=== PATIENT | female | born 1980 | race Caucasian/White ===

== ENCOUNTER 2016-10-31 19:18 | Emergency (ER) | payer OTHER ==
[~2016-10-31] VITALS: Ht 165.1 cm; Wt 72.7 kg
[~2016-10-31 19:18] MED LIST: ACETAMINOPHEN325 M1 PO; ALBUTEROL2.5 MG/3 M IH; ALPRAZOLAM0.25 M2 PO; ALPRAZOLAM1 MG PO; AMBIEN5 MG PO; AMOXICILLIN500 M1 PO; ASCORBIC ACID500 M3 PO; BACLOFEN10 MG PO; BACLOFEN20 MG PO; BISAC-EVAC10 MG PR; BUSPAR30 MG PO; CEPACOL SORE T1 EAC9 MM; COLACE100 MG PO; COMBIVENT RESPIM4 GM IH; DECADRON2 MG PO; DILAUDID1 MG/ML IM; ELAVIL10 MG PO; ENDOCET 10-3251 EACH PO; ENDOCET 5-3251 EACH PO; ESCITALOPRAM OX10 MG PO; FLEXERIL10 MG PO; FOLIC ACID0.4 MG PO; FOLIC ACID1 MG PO; FUROSEMIDE20 MG PO; HYCODAN SYRUP480 ML PO; HYDROXYZINE PAM50 MG PO; LIDOCAINE700 MG TD; LYRICA50 MG PO; MACROBID100 MG PO; MAG-AL PLUS SUS30 ML PO; METHADONE 22 MG/1 ML PO; MILK OF MAGNESI10 ML PO; MOTRIN400 MG PO; NEURONTIN300 MG PO; NICODERM CQ1 EAC1 TD; NICOTINE PATCH1 EAC1 TD; OCUFLOX 0.100 DROP/5 LEFT EYE; OXYCODONE HCL15 MG PO; PAXIL40 MG PO; PERCOCET 5/31 TABLET PO; POLYETHYLENE GL17 GM PO; PREDNISONE10 MG PO; PREDNISONE50 MG PO; PULMICORT FLE180 MCG IH; ROBITUSSIN AC,T10 ML PO; ROBITUSSIN100 MG/5 M PO; SENNA-DOCUSATE1 EAC1 PO; SEROQUEL50 MG PO; SINGULAIR10 MG PO; TESSALON PERLE100 MG PO; THEO-24400 MG PO; THERAGRAN1 TABLET PO; TIZANIDINE HCL4 MG PO; TOPIRAMATE100 MG PO; TRAZODONE HCL50 MG PO; ULTRAM50 MG PO; VENTOLIN HFA18 GM IH; VICODIN 5-3001 EACH PO; ZITHROMAX Z-PA250 MG PO; ZOFRAN4 MG PO
[2016-10-31 19:49] LABS: HEMATOCRIT 41.8 % (36.0-46.0); MCH 28.9 PG (29.0-34.0); MCHC 34.2 G/DL (30.0-36.0); MCV 84.4 FL (83-99); RBC DIS.WIDTH-CV 13.8 % (11.8-14.6); RBC DIS.WIDTH-SD 42.8 % (39-53); RED BLOOD COUNT 4.95 M/uL (3.80-5.20); WHITE BLOOD COUNT 11.2 K/uL (4.1-10.2)
[2016-10-31 19:58] LABS: CHLORIDE 110 mEq/L (99-109); POTASSIUM 3.6 mEq/L (3.7-5.4); SODIUM 141 mEq/L (136-147)
[2016-10-31 20:01] LABS: GLUCOSE 98 mg/dL (70-99)
[2016-10-31 20:02] LABS: ANION GAP 11 MEQ/L (2-14); TOTAL BILIRUBIN 0.3 mg/dL (0.0-1.0)
[2016-10-31 20:04] LABS: ALKALINE PHOSPHATASE 133 IU/L (3-129); GFR ESTIMATE (CALCULATED) > 59 mL/min/
[2016-10-31 20:05] LABS: UREA NITROGEN (BUN) 5 mg/dL (9-23)
[2016-10-31 20:08] LABS: LIPASE 1035 U/L (1.0-51.0)
[2016-10-31 20:13] LABS: QUANTITATIVE HCG < 4.0 MIU/ML
[2016-10-31 20:26] LABS: MEAN PLAT.VOLUME 12.1 uM^3 (9.5-12.4); PLAT.SUFFICIENCY ADEQUATE; PLATELET COUNT 233 K/uL (156-360)
[2016-10-31 23:38] LABS: ADD MIUA? YES; BILIRUBIN NEGATIVE; BLOOD NEGATIVE; COLOR YELLOW ((YELLOW)); GLUCOSE (STRIP) NEGATIVE; KETONES NEGATIVE; LEUKOCYTES NEGATIVE; NITRITE NEGATIVE; PROTEIN (STRIP) NEGATIVE; SPECIFIC GRAVITY 1.012 (1.000-1.030); UROBILINOGEN 0.2 MG/DL (0.2-1.0)
[2016-11-01 00:01] LABS: BACTERIA RARE /HPF; CASTS NONE SEEN /LPF; CRYSTALS NONE SEEN; EPITHELIAL CELLS 1+ /HPF; MUCUS 1+ /LPF; RED BLOOD CELLS NONE SEEN /HPF (0-5); UCUL ADDED? NO; WHITE BLOOD CELLS 0-5 /HPF (0-5)
[2016-11-01] MEDS ORDERED: PERCOCET 5/31 TABLET PO (03:19)
[2016-11-01] MEDS ORDERED: ZOFRAN8 MG PO (03:19)
[2016-11-01 03:46] VITALS: BP 127/98
== END 2016-11-01 03:48 | disposition left against medical advice (07) ==
LOC: EME 19:18 → EXP 19:18
DX: S16.1XXA Strain of muscle, fascia and tendon at neck level, initial encounter (principal); S00.93XA Contusion of unspecified part of head, initial encounter; W01.198A Fall on same level from slipping, tripping and stumbling with subsequent striking against other object, initial encounter; K85.90 Acute pancreatitis without necrosis or infection, unspecified; Z53.20 Procedure and treatment not carried out because of patient's decision for unspecified reasons; Z91.14 Patient's other noncompliance with medication regimen; Z86.73 Personal history of transient ischemic attack (TIA), and cerebral infarction without residual deficits; J45.909 Unspecified asthma, uncomplicated; I10 Essential (primary) hypertension; Z98.1 Arthrodesis status; F17.200 Nicotine dependence, unspecified, uncomplicated
CPT/HCPCS: 72040; 72125; 74177; 76705; 80053; 81003; 83690; 84702; 85027; 99281; 99285; J2270; J2405; J7030

== ENCOUNTER 2016-11-08 19:33 | Inpatient (IN) | payer OTHER ==
[~2016-11-08] VITALS: Ht 165.1 cm; Wt 83.4 kg
[~2016-11-08 19:33] MED LIST changes: -NEURONTIN300 MG PO; +NEURONTIN400 MG PO; -THEO-24400 MG PO; +THEOPHYLLINE400 MG PO; +ZOFRAN8 MG PO
[2016-11-08 20:28] LABS: CARBON DIOXIDE (BICARBONATE) 24.7 MEQ/L (20-31)
[2016-11-08 20:38] LABS: CHLORIDE 111 mEq/L (99-109); HEMATOCRIT 40.1 % (36.0-46.0); MCH 29.2 PG (29.0-34.0); MCHC 32.9 G/DL (30.0-36.0); POTASSIUM 4.6 mEq/L (3.7-5.4); RBC DIS.WIDTH-CV 14.1 % (11.8-14.6); RBC DIS.WIDTH-SD 45.4 % (39-53); RED BLOOD COUNT 4.52 M/uL (3.80-5.20); SODIUM 142 mEq/L (136-147); WHITE BLOOD COUNT 28.3 K/uL (4.1-10.2)
[2016-11-08 20:40] LABS: GLUCOSE 224 mg/dL (70-99)
[2016-11-08 20:41] LABS: MCV 88.7 FL (83-99)
[2016-11-08 20:42] LABS: ANION GAP 14 MEQ/L (2-14)
[2016-11-08 20:44] LABS: GFR ESTIMATE (CALCULATED) 49 mL/min/
[2016-11-08 20:45] LABS: UREA NITROGEN (BUN) 16 mg/dL (9-23)
[2016-11-08 20:51] LABS: TROP-I INTERPRETATION NEGATIVE
[2016-11-08 21:09] LABS: BICARBONATE 22.5 mEq/L (22-26); CARBOXY HGB 3.6 % (0-5); METHEMOGLOBIN 0.9 % (0-1.5); PO2 108 mm Hg (80-100)
[2016-11-08 21:10] LABS: PCO2 63 mm Hg (35-45); pH 7.16 (7.35-7.45)
[2016-11-08 21:11] LABS: COMMENTS - BLOOD GASES A+C+; DEVICE NC; O2 FLOW 3 L/MIN; SITE RR; TOTAL RESP RATE 20 resp/min
[2016-11-08 21:21] LABS: PLAT.SUFFICIENCY ADEQUATE; PLATELET COUNT 210 K/uL (156-360)
[2016-11-08] MEDS ORDERED: ZOFRAN4 MG PO (22:05)
[2016-11-08] MEDS ORDERED: AMBIEN10 MG PO (22:06)
[2016-11-08] MEDS ORDERED: BUTALB-APAP-CA1 EACH PO (22:07)
[2016-11-08 22:50] LABS: BICARBONATE 21.8 mEq/L (22-26); COMMENTS - BLOOD GASES C+A+; DEVICE HFNC; FI02 25 %; METHEMOGLOBIN 1.1 % (0-1.5); O2 FLOW 50 L/MIN; PCO2 52 mm Hg (35-45); PO2 68 mm Hg (80-100); SITE RR; pH 7.23 (7.35-7.45)
[2016-11-09] VITALS (8 sets, daily range): BP systolic 108–161; BP diastolic 59–92
[2016-11-09 06:38] LABS: EOSINOPHIL (%) 0 % (0-5); HEMATOCRIT 33.2 % (36.0-46.0); IMMATURE GRANULOCYTE (%) 0.6 % (0.0-0.7); IMMATURE GRANULOCYTE COUNT 0.1 K/uL; INSTRUMENT ABS NEUTROPHIL CT 12.8 K/uL; LYMPHOCYTE COUNT 1.1 K/uL (1.0-2.8); MCH 28.9 PG (29.0-34.0); MCHC 32.8 G/DL (30.0-36.0); MCV 88.1 FL (83-99); MEAN PLAT.VOLUME 12.6 uM^3 (9.5-12.4); MONOCYTE (%) 0.4 % (3-12); MONOCYTE COUNT 0.1 K/uL (0-0.8); NEUTROPHIL (%) 90.9 % (45-76); NEUTROPHIL COUNT 12.8 K/uL (1.8-6.4); PLATELET COUNT 162 K/uL (156-360); RBC DIS.WIDTH-CV 14.1 % (11.8-14.6); RBC DIS.WIDTH-SD 45.7 % (39-53); RED BLOOD COUNT 3.77 M/uL (3.80-5.20)
[2016-11-09 06:50] LABS: ANION GAP 10 MEQ/L (2-14); CHLORIDE 109 MEQ/L (99-109); GFR ESTIMATE (CALCULATED) > 59 mL/min/; GLUCOSE 161 mg/dL (70-99); POTASSIUM 3.8 MEQ/L (3.7-5.4); SAMPLE HEMOLYSIS CHECK 0; SAMPLE ICTERIC CHECK 0; SAMPLE LIPEMIA CHECK 0; SODIUM 139 MEQ/L (136-147); UREA NITROGEN (BUN) 13 mg/dL (9-23)
[2016-11-09 14:21] LABS: AMPHETAMINES QUANT VALUE 0 NG/ML; BARBITUATES QUANT VALUE 0 NG/ML; BENZODIAZEPINES, URINE SCREEN POSITIVE (200 ng/mL); MARIJUANA QUANT VALUE 0 NG/ML; OPIATES QUANTITATIVE VALUE 0 NG/ML; PHENCYCLIDINE QUANT VALUE 0 NG/ML
[2016-11-10 03:43] VITALS: BP 138/93
[2016-11-10 05:12] LABS: EOSINOPHIL (%) 0.1 % (0-5); HEMATOCRIT 32.3 % (36.0-46.0); IMMATURE GRANULOCYTE (%) 0.5 % (0.0-0.7); IMMATURE GRANULOCYTE COUNT 0.1 K/uL; INSTRUMENT ABS NEUTROPHIL CT 8.5 K/uL; MCH 28.7 PG (29.0-34.0); MCHC 33.4 G/DL (30.0-36.0); MCV 85.9 FL (83-99); MONOCYTE (%) 5.3 % (3-12); MONOCYTE COUNT 0.8 K/uL (0-0.8); NEUTROPHIL COUNT 8.5 K/uL (1.8-6.4); PLATELET COUNT 163 K/uL (156-360); RBC DIS.WIDTH-CV 14.1 % (11.8-14.6); RBC DIS.WIDTH-SD 44.8 % (39-53); RED BLOOD COUNT 3.76 M/uL (3.80-5.20); WHITE BLOOD COUNT 14.4 K/uL (4.1-10.2)
[2016-11-10 06:00] LABS: ANION GAP 8 MEQ/L (2-14); CHLORIDE 110 MEQ/L (99-109); GFR ESTIMATE (CALCULATED) > 59 mL/min/; GLUCOSE 103 mg/dL (70-99); POTASSIUM 3.3 MEQ/L (3.7-5.4); SAMPLE HEMOLYSIS CHECK 0; SAMPLE ICTERIC CHECK 0; SAMPLE LIPEMIA CHECK 0; SODIUM 138 MEQ/L (136-147); UREA NITROGEN (BUN) 13 mg/dL (9-23)
[2016-11-10 07:23] VITALS: BP 170/74
[2016-11-10] MEDS ORDERED: ZITHROMAX250 MG PO (11:08)
[2016-11-10] MEDS ORDERED: K-DUR20 MEQ PO (12:26)
== END 2016-11-10 12:45 | disposition home or self-care (01) | DRG 917 ==
LOC: EME → EDBD 19:33 → EME 19:33 → EDOF 23:13 → 4EAST 23:13 → ENRESERV 23:15 → 4EAST 11-09 01:05
PROVIDERS: Emergency Medicine; Family Medicine Sports Medicine
DX: T40.1X1A Poisoning by heroin, accidental (unintentional), initial encounter (principal); J96.01 Acute respiratory failure with hypoxia; J96.02 Acute respiratory failure with hypercapnia; J44.1 Chronic obstructive pulmonary disease with (acute) exacerbation; E87.2 Acidosis; F11.10 Opioid abuse, uncomplicated; M50.023 Cervical disc disorder at C6-C7 level with myelopathy; G82.20 Paraplegia, unspecified; E11.9 Type 2 diabetes mellitus without complications; E78.5 Hyperlipidemia, unspecified; I10 Essential (primary) hypertension; I25.10 Atherosclerotic heart disease of native coronary artery without angina pectoris; G43.909 Migraine, unspecified, not intractable, without status migrainosus; G89.4 Chronic pain syndrome; K21.9 Gastro-esophageal reflux disease without esophagitis; K86.1 Other chronic pancreatitis; M19.90 Unspecified osteoarthritis, unspecified site; M41.9 Scoliosis, unspecified; F32.9 Major depressive disorder, single episode, unspecified; F41.1 Generalized anxiety disorder; G89.29 Other chronic pain; K80.20 Calculus of gallbladder without cholecystitis without obstruction; F17.210 Nicotine dependence, cigarettes, uncomplicated; Z98.1 Arthrodesis status
CPT/HCPCS: 36600; 71010; 80048; 80306 90; 82803; 83605; 83880; 84484; 85025; 85027; 87040; 93005; 94640; 94640 76; 94799; 99202; 99281; 99285; J0456; J1100; J1650; J2310; J2405; J2543; J7030; J7050; J7120

== ENCOUNTER 2017-02-17 14:29 | Emergency (ER) | payer OTHER ==
[~2017-02-17] VITALS: Ht 167.6 cm; Wt 83.7 kg
[~2017-02-17 14:29] MED LIST changes: +AMBIEN10 MG PO; +BUTALB-APAP-CA1 EACH PO; +K-DUR20 MEQ PO; +ZITHROMAX250 MG PO
[2017-02-17] MEDS ORDERED: PERCOCET 5/31 TABLET PO (17:16)
[2017-02-17] MEDS ORDERED: MOTRIN600 MG PO (17:16)
[2017-02-17 17:58] VITALS: BP 142/98
== END 2017-02-17 17:59 | disposition home or self-care (01) ==
LOC: EME 14:29
PROC: 2W3DX1Z Immobilization of Left Lower Arm using Splint (ICD-10-PCS; principal; 2017-02-17)
DX: S63.502A Unspecified sprain of left wrist, initial encounter (principal); M79.642 Pain in left hand; M25.551 Pain in right hip; W18.39XA Other fall on same level, initial encounter; Y93.01 Activity, walking, marching and hiking; J44.9 Chronic obstructive pulmonary disease, unspecified; F17.200 Nicotine dependence, unspecified, uncomplicated
CPT/HCPCS: 73090; 73130; 99281; 99283

== ENCOUNTER 2017-10-05 20:08 | Emergency (ER) | payer OTHER ==
[~2017-10-05] VITALS: Ht 167.6 cm; Wt 82.1 kg
[~2017-10-05 20:08] MED LIST changes: +MOTRIN600 MG PO
[2017-10-05 20:59] LABS: HEMATOCRIT 33.9 % (36.0-46.0); HEMOGLOBIN 11.9 G/DL (11.9-15.5); MCH 29.8 PG (29.0-34.0); MCHC 35.1 G/DL (30.0-36.0); RBC DIS.WIDTH-CV 14.5 % (11.8-14.6); RBC DIS.WIDTH-SD 44.5 % (39-53); RED BLOOD COUNT 3.99 M/uL (3.80-5.20); WHITE BLOOD COUNT 9.4 K/uL (4.1-10.2)
[2017-10-05 21:10] LABS: CHLORIDE 110 mEq/L (99-109); POTASSIUM 3.6 mEq/L (3.7-5.4); SODIUM 138 mEq/L (136-147)
[2017-10-05 21:11] LABS: GLUCOSE 110 mg/dL (70-99)
[2017-10-05 21:15] LABS: CREATININE 0.9 mg/dL (0.6-1.3); GFR ESTIMATE (CALCULATED) > 59 mL/min/
[2017-10-05 21:16] LABS: UREA NITROGEN (BUN) 7 mg/dL (9-23)
[2017-10-05 21:19] LABS: TROP-I INTERPRETATION NEGATIVE; TROPONIN-I < 0.01 ng/mL (0.0-0.30)
[2017-10-05 21:35] LABS: PLAT.SUFFICIENCY ADEQUATE; PLATELET COUNT 228 K/uL (156-360)
[2017-10-06] MEDS ORDERED: PERCOCET 5/31 TABLET PO (02:39)
[2017-10-06] MEDS ORDERED: PREDNISONE50 MG PO (02:39)
[2017-10-06 03:16] VITALS: BP 114/90
== END 2017-10-06 03:17 | disposition left against medical advice (07) ==
LOC: EME 20:08
PROVIDERS: Emergency Medicine
DX: M54.2 Cervicalgia (principal); R53.1 Weakness; M79.601 Pain in right arm; M25.511 Pain in right shoulder; W10.9XXA Fall (on) (from) unspecified stairs and steps, initial encounter; R53.81 Other malaise; R06.02 Shortness of breath; I10 Essential (primary) hypertension; J44.9 Chronic obstructive pulmonary disease, unspecified; Z98.1 Arthrodesis status; Z86.73 Personal history of transient ischemic attack (TIA), and cerebral infarction without residual deficits; F17.200 Nicotine dependence, unspecified, uncomplicated; Z53.20 Procedure and treatment not carried out because of patient's decision for unspecified reasons
CPT/HCPCS: 70450; 71046; 72125; 73030; 80048; 81025; 84484; 85027; 93005; 94640; 99281; 99284; J7512